=== PATIENT | female | born 1945 ===

== ENCOUNTER 2019-10-14 06:03 | Inpatient (IN) | payer BC ==
[~2019-10-14 06:03] MED LIST: Acetaminophen TAB* 325 MG PO ONE; Buffered Lidocaine 1% SYRIN* 1 ML/SYRINGE INTRADERM ONE; Lactated Ringers 1000 ML Bag* 1,000 ML IV SCH; Tranexamic Acid 1,000 MG in NS 0.9% 50 ML* (outpatient use) IV SCH; celeCOXIB CAP* 200 MG PO ONE
--- OUTSIDE RECORDS SUMMARY | 2019-10-14 06:06 | XMS REPORT | Continuity of Care Document ---
:1945 External Reference #:[id number] Author Name Williams Liriano M.D. (transmitted by agent of provider Cassandra Brown) Address [address] [place] [address] Care Team Providers Name Role Phone Usman Padilla MD - Family Medicine Care Team Information Roll Setter Jasper Jones D.O. - Internal Care Team Information Roll Setter Medicine Problems Active Problems Provider Date Carpal tunnel syndrome of right wrist Williams Liriano M.D. Onset: 01/03/2017 Social History Type Date Description Comments Sex Unknown ETOH Use Drinks Alcoholic Beverages Occasionally Tobacco Use Start: Unknown Patient has never smoked Smoking Status Reviewed: 09/05/19 Patient has never smoked Exercise Type/Frequency Exercises sporadically Allergies, Adverse Reactions, Alerts Active Allergies Reaction Severity Comments Date Darvocet Nausea and Vomiting 01/03/2017 Inactive Allergies NKDA 07/23/2013 Medications Active Medications SIG Qnty Indications Ordering Provider Date Celexa 1 po qd 90tabs Unknown 20mg Tablets Omeprazole 1 po qd 90caps Unknown 20mg Capsules DR Gabapentin 1 capsule three Unknown 100mg times daily. Capsules Diclofenac Sodium take 1 tablet Unknown 75mg twice a day with Tablets food Immunizations Description No Information Available Vital Signs Date Vital Result Comment 09/05/2019 10:03am Height 61 inches 5'1" Weight 173.00 lb Heart Rate 70 /min BP Systolic Sitting 140 mmHg BP Diastolic Sitting 80 mmHg Body Temperature 97.0 F BMI (Body Mass Index) 32.7 kg/m2 08/05/2019 9:12am Height 61 inches 5'1" Weight 177.38 lb Heart Rate 57 /min BP Systolic Sitting 140 mmHg BP Diastolic Sitting 86 mmHg Body Temperature 98.7 F BMI (Body Mass Index) 33.5 kg/m2 Results Description No Information Available Procedures Description No Information Available Medical Devices Description No Information Available Encounters Type Date Location Provider Dx Diagnosis Office Visit 08/05/2019 [facility] Jasper Choe M16.12 Unilateral primary 8:30a at Chance Preston MD osteoarthritis, left hip Assessments Date Code Description Provider 09/05/2019 M16.12 Unilateral primary osteoarthritis, left hip Williams Liriano M.D. 09/05/2019 M54.32 Sciatica, left side Williams Liriano M.D. 08/05/2019 M16.12 Unilateral primary osteoarthritis, left hip Jasper Preston MD Plan of Treatment 09/05/2019 - Williams Liriano M.D.M16.12 Unilateral primary osteoarthritis, left hipM54.32 Sciatica, left sideFollow up:4 weeks after surgery if visiting nurse service set up 2 weeks after surgery if doing out patient PT Functional Status Description No Information Available Mental Status Description No Information Available Referrals Description No Information Available
[2019-10-14] MEDS ORDERED: Acetaminophen TAB* 325 MG ONE (06:37)
[2019-10-14] MEDS ORDERED: celeCOXIB CAP* 200 MG ONE (06:37)
[2019-10-14] MEDS ORDERED: ceFAZolin 2 GM in NS PREMIX(*) 2 GM/100 ML BAG IVPB ONE (06:38)
[2019-10-14] MEDS ORDERED: Bupivacaine 0.5% W/EPI SDV* 10 ML VIAL INJ ONE ×2 (07:09→07:15)
[2019-10-14] MEDS ORDERED: HYDROmorphone INJ1* 1 MG/ML SYRINGE IV PRN (07:56)
[2019-10-14] MEDS ORDERED: Naloxone* 0.4 MG/ML 1 ML VIAL IV PRN (07:56)
[2019-10-14] MEDS ORDERED: Bupivacaine 0.5% SDV PF* 30ML VIAL ONE (08:30)
[2019-10-14] MEDS ORDERED: Ondansetron INJ* 2 MG/ML VIAL ONE (08:30)
[2019-10-14] MEDS ORDERED: Dexamethasone IV* 4 MG/ML 1 ML (4 MG) ONE (08:30)
[2019-10-14] MEDS ORDERED: Propofol* 500 MG/50 ML BTL ONE (08:30)
[2019-10-14] MEDS ORDERED: Propofol* 10 MG/ML 20 ML BTL ONE (09:56)
[2019-10-14] MEDS ORDERED: Ondansetron INJ* 2 MG/ML VIAL IV PRN (10:23)
[2019-10-14] MEDS ORDERED: Ondansetron ODT TAB* 4 MG PO PRN (10:23)
[2019-10-14] MEDS ORDERED: traMADol TAB* 50 MG PO PRN (10:23)
[2019-10-14] MEDS ORDERED: Morphine INJ* 2 MG/ML 1 ML SYRINGE (TWO MG - NEW SYRINGE VERSION) IV PRN (10:23)
[2019-10-14] MEDS ORDERED: diPHENhydraMINE PO* 25 MG PO PRN (10:23)
[2019-10-14] MEDS ORDERED: Magnesium Hydroxide LIQ* 30 ML UDC PO PRN (10:23)
[2019-10-14] MEDS ORDERED: Cyclobenzaprine TAB* 10 MG PO PRN (10:23)
[2019-10-14] MEDS ORDERED: diPHENhydraMINE IV* 50 MG/ML 1 ml VIAL (BENADRYL) IV PRN (10:23)
[2019-10-14] MEDS ORDERED: Ketorolac INJ* 30 MG/ML 1 ML VIAL IV PRN (10:23)
[2019-10-14] MEDS ORDERED: oxyCODONE TAB* 5 MG TAB PO PRN (10:23)
[2019-10-14] MEDS ORDERED: Gabapentin CAP(*) 100 MG PO PRN (10:26)
[2019-10-14] MEDS: D5W 1/2 NS 1000 ML BAG* 1,000 ML IV SCH ×2 (12:44→22:59)
[2019-10-14] MEDS: Acetaminophen TAB* 325 MG PO SCH ×2 (14:31→22:04)
[2019-10-14] MEDS: ceFAZolin 1 GM ADVAN(*) 1 GM in NS 0.9% 50 ML* 50 ML IVPB SCH (16:53)
[2019-10-14] MEDS: Magnesium Hydroxide LIQ* 30 ML UDC PO SCH (20:23)
[2019-10-14] MEDS: Docusate CAP* 100 MG PO SCH (20:23)
--- NOTE | 2019-10-14 20:39 | OP ---
DATE OF OPERATION: 10/14/19 - ROOM #341 DATE OF : 47 SURGEON: Williams Liriano MD. HOT TAMALE WORKER: BREANNE Rosales. ANESTHESIA: Spinal and sedation. PRE-OP DIAGNOSIS: Osteoarthritis, left hip. POST-OP DIAGNOSES: Osteoarthritis, left hip. OPERATIVE PROCEDURE: Left total hip arthroplasty. ESTIMATED BLOOD LOSS: 75 cc. COMPLICATIONS: None. HARDWARE: Marva #4 reduced neck standard offset M/L taper, -3.5, 32 mm head, 48 mm cup with flat elevated liner and 1 screw. INDICATIONS: Ms. Norris is a 74-year-old female who has been having more and more troubles with left groin pain. She also had some pain that radiated down the leg and she underwent a guided injection, which gave her one week of spectacular relief and then slowly wore off. Her x-rays did show some changes within that joint and the guided ultrasound found near complete loss of the joint space. I discussed with her that considering this was limiting her ability to participate in simple ADLs that a total hip arthroplasty should work well to decrease her pain and improve her function. Risks of surgery such as infection, scar formation, stiffness, DVT, leg length discrepancy, instability, and hardware failure were some of the risks discussed. She had been declared medically optimized and wished to proceed. DESCRIPTION OF PROCEDURE: The patient was brought to the OR and spinal anesthesia was introduced. Cardenas catheter was placed. She was then rolled into the right later decubitus position and an axillary roll was placed. She reported that it felt strange but it was not uncomfortable. Left hip area was then prepped and then draped. An incision was made centered over the greater trochanter, extending proximally and distally for about 6 cm. Incision was carried down through the skin and subcutaneous fat. Going downwards through the fat, eventually I did come down to fascia and fascia was then sharply incised. Bursa over greater trochanter was taken down and Charnley retractor was placed. With internal rotation of the leg, nice exposure of the edge of the abductors was found and a sharp Hohmann was placed underneath them. Nice exposure of the short external rotators and piriformis was then obtained. Electrocautery was used to take down the external rotators, piriformis, and capsule. Capsule was significantly thickened. T capsulotomy was made and hip was then easily dislocated. Femoral neck was marked using the cutting guide and femoral head was resected. She measured 44 mm in size and this was smaller than what I had templated for. Beginning with a 42 reamer, she was first deepened a little bit and then progressively enlarged. From preoperative templating, I did not want to medialize much, so I was not very aggressive in that regard. I wanted to simply expand right in the area. With a 46, I seemed to have a good [id number] fit and some of the bleeding bone, so she was reamed with a 47 and then a 48 mm cup was then impacted into place. One 30 mm screw was placed and a wonderful bite was obtained. Trial flat liner was placed and attention was turned to the proximal femur. Box osteotome was used to open the femoral canal and the canal finder was easily passed. Starting with the 4 broach, she was broached but she was fairly tight. Again, she had templated to a 7.5, but again her head was smaller when I was actually in the hip. With the 4, I seemed to have a good snug fit and the 4 actually took a bit to work downwards so that it was flushed. She was trialed first with a standard neck and a 0 head and it was long. Reduced neck and minus head was trialed and she was still a little bit long. Broach was removed and another 3 mm was resected from the femoral neck. 4 was then again replaced and she sat down nicely and was trialed again and at this time, leg length appeared equal. Her stability still seemed excellent. She could be flexed up to 120 degrees without any troubles and then coming back to 90 degrees, she could be internally rotated to 75 degrees and still did not dislocate. Dropping down to adduction, she again could be internally rotated and did not dislocate. In extension, she could be externally rotated and was nice and stable in that positioning as well. Trial instrumentation was removed and hip was copiously pulse lavaged. Flat liner was placed in the acetabulum and a 4 reduced neck standard offset M/L taper was then impacted into place. Nice secure fit was obtained. She was again trialed with a minus head and had the same wonderful motion and stability. Then -3.5, 32 mm head was then impacted into place. Hip was again copiously pulse lavaged. Capsule and external rotators were repaired together to the posterior aspect of the greater trochanter. Wound was again copiously pulse lavaged and fascia was repaired using interrupted #1 Vicryl sutures. Subcutaneous tissues were repaired in layers with 2-0 Vicryl. Skin was closed using rere. Sterile dressing was applied. The patient was then rolled on to the hospital bed and was stable on transfer to the recovery room. [id number]/CPS #: [id number] MIGEL
[2019-10-14] MEDS ORDERED: Pantoprazole TAB * 40 MG TAB PO SCH (21:00)
[2019-10-14] MEDS ORDERED: Citalopram TAB* 20 MG PO SCH (21:00)
[2019-10-15] MEDS: ceFAZolin 1 GM ADVAN(*) 1 GM in NS 0.9% 50 ML* 50 ML IVPB SCH ×2 (00:16→08:02)
[2019-10-15 04:34] LABS: Hematocrit 33 % (35-47); Hemoglobin 11.4 g/dL (12.0-16.0); Mean Platelet Volume 7.7 fL (7.4-10.4); Platelet Count 214 10^3/uL (150-450)
[2019-10-15 04:44] LABS: Calcium 8.5 mg/dL (8.6-10.3); Potassium 4.1 mmol/L (3.5-5.0)
[2019-10-15 04:49] LABS: BUN/Creatinine Ratio 20.7 (8-20); EGFR African American 82.7 (>60); EGFR Non-African American 68.3 (>60)
[2019-10-15] MEDS: Acetaminophen TAB* 325 MG PO SCH (06:12)
[2019-10-15] MEDS: oxyCODONE TAB* 5 MG TAB PO PRN ×2 (06:14→12:43)
[2019-10-15] MEDS: Magnesium Hydroxide LIQ* 30 ML UDC PO SCH (08:02)
[2019-10-15] MEDS: Docusate CAP* 100 MG PO SCH (08:02)
[2019-10-15] MEDS ORDERED: Vitamin THERAPEUTIC TAB PO SCH (09:00)
[2019-10-15] MEDS ORDERED: Apixaban* 2.5 MG TAB PO SCH (09:00)
--- NOTE | 2019-10-15 11:06 | DS ---
Orthopedic Discharge Summary - Discharge Summary Date of Admission:10/14/19 Date of Discharge: 10/15/19 Date of Surgery: 10/14/19 Attending Orthopedic Provider: Dr Liriano Pre-operative Diagnosis: Right hip osteoarthritis Operative Procedure: Right total hip replacement Disposition of Patient:home Home care vs Outpatient services: lifetime nursing and home PT Condition of Patient: stable Pain medication RX at discharge: oxycodone 5 mg 1-2 q 4 hr prn mdd 6, low pain med requirement in house DVT prophylaxis RX at discharge: eliquis 2.5 mg po bid x 30 days post op History: SARIKA LYNNE is a 74 year old F with years of increasingly severe right hip pain. Patient has failed conservative management and has elected to undergo a [facility] Hospital Course: SARIKA was admitted to [facility] on 10/14/19. Patient underwent a right total hip replacement without complication followed by a brief recovery in PACU and transfer to the Short Stay Surgical Unit in stable condition. physical therapy and occupational therapy also participated in this patients care. Post-op day 1: patient was alert and in no acute distress. Dressing was clean, dry and intact. Operative extremity dorsiflexion and plantarflexion intact, sensation intact to light touch distally, DP2+. Prior to DC: dressing was changed, incision was clean, dry and intact. Patient was deemed to be medically and orthopedically stable for discharge. Physical therapy goals were met. Home Medications Medication Instructions Recorded Confirmed Type Acetaminophen [Acetaminophen Extra 1,000 mg PO ONCE PRN 10/08/19 10/08/19 History Strength] Citalopram TAB* [Celexa TAB*] 20 mg PO BEDTIME 10/08/19 10/14/19 History Gabapentin CAP(*) [Neurontin 100 300 mg PO BEDTIME PRN 10/08/19 10/14/19 History mg CAP(*)] Ibuprofen TAB* [Advil TAB*] 400 mg PO ONCE PRN 10/08/19 10/08/19 History Omeprazole 20 mg PO BEDTIME 10/08/19 10/14/19 History Apixaban* [Eliquis*] 2.5 mg PO Q12HR #60 tab 10/14/19 Rx Acetaminophen TAB* [Tylenol TAB*] 975 mg PO Q8HR tab 10/15/19 Rx Apixaban* [Eliquis*] 2.5 mg PO BID tab 10/15/19 Rx Docusate CAP* [Colace Cap*] 100 mg PO BID PRN #60 cap 10/15/19 Rx oxyCODONE TAB* [Roxycodone TAB 5 5 mg PO Q4H PRN tab MDD 6 10/15/19 Rx mg*] oxyCODONE TAB* [Roxycodone TAB 5 10 mg PO Q4H PRN #30 tab MDD 6 10/15/19 Rx mg*] Discharge Instructions following Orthopedic Surgery: Activity: * Weight Bearing as tolerated * Continue physical therapy and occupational therapy exercises as shown * you have elected to have home physical therapy, continue therapy exercises at home. Hip replacements: Continue Hip Precautions- do not cross legs or bend greater than 90 degrees/squat Wound care: * OK to shower on post-op day 3, no bathing, swimming, or submerging wound. * Use gentle soap, pat dry. Cover with gauze, HUGO wrap or tape. * you elected to have a visiting home nurse, they will perform wound checks. Home nurse to remove rere 2 weeks post op Call Orthopedic office for: * Increased drainage * Redness * Increased pain * Fever Go to ER with shortness of breath or chest pain. Diet: * Regular diet * Increase fluids and fiber to prevent constipation. * Continue to use stool softeners, call office if no bowel motion within 48 hours. Medications See Home Medication List in your packet for medications that you should take after discharge. DVT Prophylaxis: Eliquis Dosin.5 mg, 1 tab every 12 hours x 30 days. Increases bleeding tendency Pain Control: Oxycodone 5 mg tabs: take 1 tab for moderate pain and 2 tabs for severe pain by mouth every 4 hours as needed. Maximum of 10 tabs per day. Hold for sedation, wean off as soon as pain allows. Antibiotics are required prior to any dental work. FOLLOW UP: Follow up with [Deandra] Within 4 weeks, call for appointment Please call our office with any questions or concerns ([phone]) [facility]
[2019-10-15 11:14] VITALS: BP 123/58
== END 2019-10-15 13:40 | disposition home or self-care (01) | DRG 301 ==
LOC: AA 06:03 → SSU 10:23
PROVIDERS: ADMIT Orthopaedic Surgery; ATTEND Orthopaedic Surgery
PROC: 0SRB02A Replacement of Left Hip Joint with Metal on Polyethylene Synthetic Substitute, Uncemented, Open Approach (ICD-10-PCS; principal; 2019-10-14 08:00)
DX: M16.12 Unilateral primary osteoarthritis, left hip (principal); K21.9 Gastro-esophageal reflux disease without esophagitis; M54.32 Sciatica, left side; E78.2 Mixed hyperlipidemia; K44.9 Diaphragmatic hernia without obstruction or gangrene; Z79.01 Long term (current) use of anticoagulants; Z88.5 Allergy status to narcotic agent
CPT/HCPCS: 36415; 72170; 80048; 85014; 85018; 85049; A9270-GY; C1713; C1776; J0690; J1100; J2405; J2704; J3490